=== PATIENT | male | born 1965 | race Caucasian/White ===

== ENCOUNTER 2018-12-26 19:11 | Emergency (ER) | payer OTHER ==
[~2018-12-26 19:11] MED LIST: ATOR20TA22 PO; AUG500 PO; DOXY-260 PO
[2018-12-26 19:28] VITALS: BP 106/67
--- NOTE | 2018-12-26 19:35 | ER Report ---
History and Physical Time Seen By MD: 19:30 Hx. of Stated Complaint: Pt cut left index finger with knife trying to open package. HPI/ROS CHIEF COMPLAINT: Finger laceration HISTORY OF PRESENT ILLNESS: 53-year-old male presents ambulatory to the ER complaining of laceration to his left index finger just prior to arrival. He was attempting to cut open a package with dessert and it with a sharp knife. He has a flap laceration along the radial aspect of his left index finger. Patient states his tetanus status is within the last 10 years. He is up-to-date. She notes mild 2/10 pain at the site. Allergies: Coded Allergies: No Known Drug Allergies (Verified , 12/26/18) Home Meds Reported Medications Atorvastatin Calcium (Lipitor) 20 Mg Tablet, 10 MG PO QAM, 0 Refills 07/22/10 Reviewed Nurses Notes: Yes Old Medical Records Reviewed: Yes Hx Smoking: No Smoking Status: Never Smoker Hx Alcohol Use: Yes Constitutional Vital Sign - Last 24 Hours 12/26/18 19:28 Temp 97.6 Pulse 81 Resp 16 B/P (MAP) 106/67 Pulse Ox 91 O2 Delivery Room Air Physical Exam General appearance: Alert no distress. Respiratory: Chest is non tender, lungs are clear to auscultation. Cardiac: Regular rate and rhythm Extremities: Examination of the left index fingers reveals a flap-type laceration in the mid segment of the left index finger. It's approximately 2.9 centimeters long. Distal neurovascular function appears intact. There is no penetration of the joint. There is no obvious tendon deficiencies. DIFFERENTIAL DIAGNOSIS: After history and physical exam differential diagnosis was considered for finger laceration, joint penetration, tendon laceration, digital nerve laceration Medical Decision Making ED Course/Re-evaluation ED Course Patient was admitted to an examination room. H&P was done. The differential di agnoses was considered. On clinical examination. Patient has a flap laceration on the radial aspect of his left index finger. Wound was repaired as noted below. Wound care was discussed, suture removal in 10 days. Use ibuprofen for pain relief as needed Procedure: Laceration repair. Verbal consent was obtained from the patient. The 2.9 cm laceration on the left index finger, radial aspect, midportion was anesthetized in the usual fashion. The wound was scrubbed, draped and explored to its base with a gloved finger. There were no deep structures involved. No tendon injury was identified. The wound was repaired with 5-0 Prolene 4 sutures. The wound repair was simple. The procedure was performed by myself. Decision to Disposition Date: Dec 26, 2018 Decision to Disposition Time: 20:16 Depart Departure Latest Vital Signs Vital Signs Date Time Temp Pulse Resp B/P (MAP) Pulse Ox O2 Delivery O2 Flow Rate FiO2 12/26/18 19:28 97.6 81 16 106/67 91 Room Air Impression: Primary Impression: Laceration of left index finger Condition: Improved Disposition: HOME OR SELF-CARE Patient Instructions: Finger Laceration (ED) Additional Instructions: Perform daily wound care Stitches to be removed in 10 days Use ibuprofen for pain Return for any signs of infection Problem Qualifiers Primary Impression: Laceration of left index finger Encounter type: initial encounter Damage to nail status: without damage Foreign body presence: without foreign body Qualified Codes: S61.211A - Laceration without foreign body of left index finger without damage to nail, initial encounter JUNIOR VÁSQUEZ DO Dec 26, 2018 19:35
== END 2018-12-26 20:22 | disposition home or self-care (01) ==
LOC: ER 19:31
DX: S61.211A Laceration without foreign body of left index finger without damage to nail, initial encounter (principal); W26.0XXA Contact with knife, initial encounter
CPT/HCPCS: 99283